=== PATIENT | male | born 1970 | race Asian ===

== ENCOUNTER → 2017-04-28 | Outpatient (CLI) | payer BC ==
[2017-04-28 11:53] LABS: BASOPHILS % 0.6 % (0.0-2.0); EOSINOPHILS % 1.6 % (0.0-5.0); HEMATOCRIT. 49.7 % (42.0-52.0); HEMOGLOBIN. 17.6 g/dL (14.0-18.0); LYMPHOCYTES % 28.6 % (20.0-50.0); MEAN CORPUSCULAR HEMOGLOBIN 30.5 pg (28.0-32.0); MEAN CORPUSCULAR VOLUME 85.9 fL (80.0-94.0); MEAN PLATELET VOLUME 8.7 fl (7.4-10.4); MONOCYTES % 5.1 % (2.0-8.0); NEUTROPHILS % 64.1 % (40.0-76.0); PLATELET 162 x1000/uL (130-400); RED BLOOD CELL COUNT 5.78 mill/uL (4.7-6.1); RED CELL DISTRIBUTION WIDTH 12.4 % (11.6-14.6)
[2017-04-28 11:58] LABS: CLARITY URINE CLEAR (CLEAR); COLOR URINE YELLOW (YELLOW); GLUCOSE URINE 3+ (NEGATIVE); KETONES URINE 1+ (NEGATIVE); LEUKOCYTE ESTERASE URINE NEGATIVE (NEGATIVE); NITRITE URINE NEGATIVE (NEGATIVE); OCCULT BLOOD URINE NEGATIVE (NEGATIVE); PROTEIN URINE TRACE (NEGATIVE); SPECIFIC GRAVITY URINE 1.042 (1.005-1.030); UROBILINOGEN URINE 0.2 E.U./dL (0.2-1.0)
[2017-04-28 12:12] LABS: CARBON DIOXIDE 30 mEq/L (21-32); CHLORIDE 98 mEq/L (98-107); HDL CHOLESTEROL 35 mg/dL (40-59); LDL CHOLESTEROL 131 mg/dL (5-100)
== END | disposition home or self-care (01) ==
LOC: LAB 11:11
PROVIDERS: ATTEND Internal Medicine Nephrology
DX: E11.9 Type 2 diabetes mellitus without complications (principal)
CPT/HCPCS: 36415; 80048; 80061; 81001; 83036; 85025

== ENCOUNTER → 2017-05-20 | Outpatient (CLI) | payer BC | END | disposition home or self-care (01) | LOC: LAB 16:11 | PROVIDERS: ATTEND Internal Medicine Rheumatology | DX: S62.602D Fracture of unspecified phalanx of right middle finger, subsequent encounter for fracture with routine healing (principal); M75.101 Unspecified rotator cuff tear or rupture of right shoulder, not specified as traumatic; M50.30 Other cervical disc degeneration, unspecified cervical region; G56.01 Carpal tunnel syndrome, right upper limb; M05.79 Rheumatoid arthritis with rheumatoid factor of multiple sites without organ or systems involvement; M06.4 Inflammatory polyarthropathy; X58.XXXD Exposure to other specified factors, subsequent encounter | CPT/HCPCS: 73030; 73110; 73130 ==

== ENCOUNTER → 2017-05-24 | Outpatient (CLI) | payer BC ==
[2017-05-24 08:50] LABS: BASOPHILS % 0.8 % (0.0-2.0); HEMOGLOBIN. 16.8 g/dL (14.0-18.0); LYMPHOCYTES % 29.3 % (20.0-50.0); MEAN CORPUSCULAR HEMOGLOBIN 30.4 pg (28.0-32.0); MEAN CORPUSCULAR VOLUME 86.8 fL (80.0-94.0); MEAN PLATELET VOLUME 8.7 fl (7.4-10.4); MONOCYTES % 4.6 % (2.0-8.0); NEUTROPHILS % 63.3 % (40.0-76.0); PLATELET 181 x1000/uL (130-400); RED BLOOD CELL COUNT 5.53 mill/uL (4.7-6.1); RED CELL DISTRIBUTION WIDTH 12.5 % (11.6-14.6)
[2017-05-24 08:51] LABS: CLARITY URINE CLEAR (CLEAR); COLOR URINE YELLOW (YELLOW); GLUCOSE URINE 2+ (NEGATIVE); KETONES URINE NEGATIVE (NEGATIVE); LEUKOCYTE ESTERASE URINE NEGATIVE (NEGATIVE); NITRITE URINE NEGATIVE (NEGATIVE); OCCULT BLOOD URINE NEGATIVE (NEGATIVE); PH URINE 6.5 (4.5-8.0); PROTEIN URINE NEGATIVE (NEGATIVE); SPECIFIC GRAVITY URINE 1.006 (1.005-1.030); UROBILINOGEN URINE 0.2 E.U./dL (0.2-1.0)
[2017-05-24 09:20] LABS: CHLORIDE 102 mEq/L (98-107)
[2017-05-24 09:58] LABS: C REACTIVE PROTEIN QUANT 0.6 mg/L (0.0-3.0); CARBON DIOXIDE 26 mEq/L (21-32); CREATINE KINASE 150 IU/L (39-308); HDL CHOLESTEROL 40 mg/dL (40-59); LDL CHOLESTEROL 82 mg/dL (5-100)
[2017-05-25 15:12] LABS: ANTI-DNA DOUBLE STRANDED QUANT < 1 IU/mL (0-9); ANTI-NUCLEAR ANTIBODIES DIRECT Negative (Negative); RNP ANTIBODY < 0.2 AI (0.0-0.9); SJOGRENS ANTI SS-A < 0.2 AI (0.0-0.9); SJOGRENS ANTI SS-B < 0.2 AI (0.0-0.9); SMITH ANTIBODY < 0.2 AI (0.0-0.9)
[2017-05-26 09:11] LABS: ALDOLASE 4.8 U/L (3.3-10.3); ANGIOTENSION CONVERTING ENZYME 35 U/L (14-82); COMPLEMENT C3 119 mg/dL (82-167); DRVVT LA 33.8 sec (0.0-47.0); LUPUS ANTICOAG INTERPRETATION Comment: (.); PTT-LA 36.4 sec (0.0-51.9)
[2017-05-26 13:09] LABS: G6PD QUANTITATIVE 229 (146-376)
[2017-05-26 15:12] LABS: ANTI-CARDIOLIPIN AB IGA < 9 APL U/mL (0-11); ANTI-CARDIOLIPIN AB IGG < 9 GPL U/mL (0-14); ANTI-CARDIOLIPIN AB IGM < 9 MPL U/mL (0-12)
[2017-05-27 04:18] LABS: CYC CITRULLINATED PEP IgG/IgA 7 units (0-19)
[2017-05-30 13:12] LABS: HLA B27 DISEASE ASSOCIATION Negative (.)
== END | disposition home or self-care (01) ==
LOC: MRI 08:00
PROVIDERS: ATTEND Internal Medicine Rheumatology
DX: M48.02 Spinal stenosis, cervical region (principal); M50.80 Other cervical disc disorders, unspecified cervical region; M50.30 Other cervical disc degeneration, unspecified cervical region; M75.101 Unspecified rotator cuff tear or rupture of right shoulder, not specified as traumatic; G56.01 Carpal tunnel syndrome, right upper limb; M05.79 Rheumatoid arthritis with rheumatoid factor of multiple sites without organ or systems involvement; M06.4 Inflammatory polyarthropathy
CPT/HCPCS: 36415; 72040; 72141; 73221; 80053; 80061; 81001; 82085; 82164; 82550; 82955; 83036; 84439; 84550; 85025; 85041; 85613; 85651; 85732; 86038; 86140; 86147; 86160; 86200; 86225; 86235; 86430; 86592; 86780

== ENCOUNTER → 2017-07-27 | Outpatient (CLI) | payer BC ==
[2017-07-27 09:49] LABS: T4 FREE 0.96 ng/dL (0.76-1.46)
[2017-07-28 13:12] LABS: *CREATININE RANDOM URINE 29.8 mg/dL (Not Estab.)
== END | disposition home or self-care (01) ==
LOC: LAB 08:03
PROVIDERS: ATTEND Internal Medicine Endocrinology, Diabetes & Metabolism
DX: E11.69 Type 2 diabetes mellitus with other specified complication (principal); E11.29 Type 2 diabetes mellitus with other diabetic kidney complication; E05.90 Thyrotoxicosis, unspecified without thyrotoxic crisis or storm
CPT/HCPCS: 36415; 82043; 82570; 84439; 84443; 84681

== ENCOUNTER → 2017-09-28 | Outpatient (CLI) | payer BC | END | disposition home or self-care (01) | LOC: LAB 07:59 | PROVIDERS: ATTEND Internal Medicine Endocrinology, Diabetes & Metabolism | DX: E11.311 Type 2 diabetes mellitus with unspecified diabetic retinopathy with macular edema (principal) | CPT/HCPCS: 83036 ==

== ENCOUNTER → 2018-04-16 | Outpatient (CLI) | payer BC ==
[2018-04-16 08:19] LABS: CLARITY URINE CLEAR (CLEAR); COLOR URINE YELLOW (YELLOW); KETONES URINE NEGATIVE (NEGATIVE); LEUKOCYTE ESTERASE URINE NEGATIVE (NEGATIVE); NITRITE URINE NEGATIVE (NEGATIVE); OCCULT BLOOD URINE NEGATIVE (NEGATIVE); PH URINE 6.5 (4.5-8.0); PROTEIN URINE NEGATIVE (NEGATIVE); SPECIFIC GRAVITY URINE 1.012 (1.005-1.030); UROBILINOGEN URINE 0.2 E.U./dL (0.2-1.0)
[2018-04-16 08:22] LABS: BASOPHILS % 0.8 % (0.0-2.0); EOSINOPHILS % 6.7 % (0.0-5.0); HEMATOCRIT. 47.9 % (42.0-52.0); HEMOGLOBIN. 16.6 g/dL (14.0-18.0); LYMPHOCYTES % 26.6 % (20.0-50.0); MEAN CORPUSCULAR HEMOGLOBIN 29.9 pg (28.0-32.0); MEAN CORPUSCULAR VOLUME 86.6 fL (80.0-94.0); MEAN PLATELET VOLUME 8.3 fl (7.4-10.4); NEUTROPHILS % 59.9 % (40.0-76.0); PLATELET 187 x1000/uL (130-400); RED BLOOD CELL COUNT 5.53 mill/uL (4.7-6.1)
[2018-04-16 08:41] LABS: CHLORIDE 99 mEq/L (98-107)
[2018-04-16 08:56] LABS: LDL CHOLESTEROL 148 mg/dL (5-100)
[2018-04-16 08:57] LABS: HDL CHOLESTEROL 35 mg/dL (40-59)
[2018-04-17 09:06] LABS: *CREATININE RANDOM URINE 48.7 mg/dL (Not Estab.); MICROALBUMIN RANDOM URINE 12.6 ug/mL (Not Estab.)
== END | disposition home or self-care (01) ==
LOC: LAB 07:46
PROVIDERS: ATTEND Internal Medicine Nephrology
DX: E11.9 Type 2 diabetes mellitus without complications (principal); R80.9 Proteinuria, unspecified
CPT/HCPCS: 36415; 80053; 80061; 81003; 82043; 82570; 83036; 84443; 85025

== ENCOUNTER → 2018-06-16 | Outpatient (CLI) | payer BC | END | disposition home or self-care (01) | LOC: MRI 08:09 | PROVIDERS: ATTEND Neurological Surgery | DX: M48.02 Spinal stenosis, cervical region (principal); M50.221 Other cervical disc displacement at C4-C5 level | CPT/HCPCS: 72141 ==

== ENCOUNTER → 2021-10-05 | Outpatient (CLI) | payer BC ==
[~2021-10-05] MED LIST: ASPI-1497 PO; CHOL400T31 PO; GABA-532 PO; GLIP5TAB12 MT; INSU300I SQ; LINA5TAB PO; LOSA25TA26 PO; METF-416 PO; SIMV-43 PO
[2021-10-05 09:27] LABS: BASOPHILS % 0.6 % (0.0-2.0); EOSINOPHILS % 1.3 % (0.0-5.0); HEMOGLOBIN. 16.2 g/dL (14.0-18.0); LYMPHOCYTES % 24.2 % (20.0-50.0); MEAN CORPUSCULAR HEMOGLOBIN 29.8 pg (28.0-32.0); MEAN CORPUSCULAR VOLUME 84.6 fL (80.0-94.0); MEAN PLATELET VOLUME 8.8 fl (7.4-10.4); MONOCYTES % 6.1 % (2.0-8.0); NEUTROPHILS % 67.8 % (40.0-76.0); PLATELET 165 x1000/uL (130-400); RED BLOOD CELL COUNT 5.43 mill/uL (4.7-6.1); RED CELL DISTRIBUTION WIDTH 12.8 % (11.6-14.6)
[2021-10-05 09:56] LABS: CHLORIDE 103 mEq/L (98-107)
[2021-10-05 10:01] LABS: CLARITY URINE CLEAR (CLEAR); COLOR URINE YELLOW (YELLOW); KETONES URINE NEGATIVE (NEGATIVE); LEUKOCYTE ESTERASE URINE NEGATIVE (NEGATIVE); NITRITE URINE NEGATIVE (NEGATIVE); OCCULT BLOOD URINE NEGATIVE (NEGATIVE); PROTEIN URINE NEGATIVE (NEGATIVE); SPECIFIC GRAVITY URINE 1.014 (1.005-1.030); UROBILINOGEN URINE 0.2 E.U./dL (0.2-1.0)
[2021-10-05 10:04] LABS: LDL CHOLESTEROL 105 mg/dL (5-100)
[2021-10-05 10:06] LABS: HDL CHOLESTEROL 42 mg/dL (40-59); T4 FREE 1.06 ng/dL (0.76-1.46)
== END | disposition home or self-care (01) ==
LOC: LAB 08:46
DX: E11.65 Type 2 diabetes mellitus with hyperglycemia (principal); E11.43 Type 2 diabetes mellitus with diabetic autonomic (poly)neuropathy; E66.3 Overweight; E78.3 Hyperchylomicronemia
CPT/HCPCS: 36415; 80053; 80061; 81003; 82306; 83036; 84439; 84443; 84681; 85025

== ENCOUNTER → 2022-08-24 | Outpatient (CLI) | payer BC ==
[2022-08-24 11:04] LABS: BASOPHILS % 0.5 % (0.0-2.0); EOSINOPHILS % 1.7 % (0.0-5.0); HEMATOCRIT. 49.6 % (42.0-52.0); LYMPHOCYTES % 29.9 % (20.0-50.0); MEAN CORPUSCULAR HEMOGLOBIN 29.7 pg (28.0-32.0); MEAN CORPUSCULAR VOLUME 86.6 fL (80.0-94.0); MEAN PLATELET VOLUME 8.1 fl (7.4-10.4); NEUTROPHILS % 61.9 % (40.0-76.0); PLATELET 183 x1000/uL (130-400); RED BLOOD CELL COUNT 5.73 mill/uL (4.7-6.1); RED CELL DISTRIBUTION WIDTH 13.3 % (11.6-14.6)
[2022-08-24 11:07] LABS: CLARITY URINE CLEAR (CLEAR); COLOR URINE YELLOW (YELLOW); KETONES URINE TRACE (NEGATIVE); LEUKOCYTE ESTERASE URINE NEGATIVE (NEGATIVE); NITRITE URINE NEGATIVE (NEGATIVE); OCCULT BLOOD URINE NEGATIVE (NEGATIVE); PROTEIN URINE TRACE (NEGATIVE); SPECIFIC GRAVITY URINE 1.028 (1.005-1.030); UROBILINOGEN URINE 0.2 E.U./dL (0.2-1.0)
[2022-08-24 11:53] LABS: CHLORIDE 101 mEq/L (98-107)
[2022-08-24 13:29] LABS: HDL CHOLESTEROL 40 mg/dL (40-59)
[2022-08-24 15:03] LABS: LDL CHOLESTEROL 123 mg/dL (5-100)
[2022-08-29 04:07] LABS: 25-HYDROXY VITAMIN D3 25 ng/mL (.)
== END | disposition home or self-care (01) ==
LOC: LAB 10:33
PROVIDERS: ATTEND Internal Medicine Nephrology
DX: E11.9 Type 2 diabetes mellitus without complications (principal)
CPT/HCPCS: 36415; 80048; 80061; 81003; 82306; 83036; 85025

== ENCOUNTER → 2023-05-16 | Outpatient (CLI) | payer BC ==
[2023-05-16 08:19] LABS: CLARITY URINE CLEAR (CLEAR); COLOR URINE YELLOW (YELLOW); GLUCOSE URINE NEGATIVE (NEGATIVE); KETONES URINE NEGATIVE (NEGATIVE); LEUKOCYTE ESTERASE URINE NEGATIVE (NEGATIVE); NITRITE URINE NEGATIVE (NEGATIVE); OCCULT BLOOD URINE NEGATIVE (NEGATIVE); PROTEIN URINE TRACE (NEGATIVE); SPECIFIC GRAVITY URINE 1.014 (1.005-1.030)
[2023-05-16 08:21] LABS: BACTERIA URINE NONE SEEN; RBC URINE NONE SEEN /hpf (0-2); SQUAMOUS EPITHELIAL CELL URINE NONE SEEN /lpf (RARE/1+); WBC URINE NONE SEEN /hpf (0-2); YEAST URINE NONE SEEN
[2023-05-16 08:52] LABS: CHLORIDE 102 mEq/L (98-107); INDEX HEMOLYSI 1 (1-3); INDEX ICTERIC 1 (1-4); INDEX LIPEMIC 1 (1-3); POTASSIUM 4.3 mEq/L (3.5-5.1); SODIUM 136 mEq/L (136-145)
[2023-05-16 09:08] LABS: ALANINE AMINOTRANSFERASE 39 IU/L (13-61); ALBUMIN 4.3 g/dL (3.4-5.0); ASPARTATE AMINOTRANSFERASE 20 IU/L (15-37); CARBON DIOXIDE 29 mEq/L (21-32); CREATININE 0.9 mg/dL (0.6-1.3); GLUCOSE 214 mg/dL (70-105); PROTEIN TOTAL 7.9 g/dL (6.0-8.3); T4 FREE 1.02 ng/dL (0.76-1.46); UREA NITROGEN BLOOD 22 mg/dL (7-21)
== END | disposition home or self-care (01) ==
LOC: LAB 07:59
PROVIDERS: ATTEND Internal Medicine Endocrinology, Diabetes & Metabolism
DX: I10 Essential (primary) hypertension (principal); E11.43 Type 2 diabetes mellitus with diabetic autonomic (poly)neuropathy; E11.69 Type 2 diabetes mellitus with other specified complication
CPT/HCPCS: 36415; 80053; 81003; 83036; 84439; 84443; 84681

== ENCOUNTER → 2023-08-12 | Outpatient (CLI) | payer BC ==
[~2023-08-12] MED LIST changes: -GLIP5TAB12 MT; +GLIP5TAB22 MT
[2023-08-12 08:18] LABS: BASOPHILS % 0.7 % (0.0-2.0); EOSINOPHILS % 1.9 % (0.0-5.0); HEMATOCRIT. 52.4 % (42.0-52.0); HEMOGLOBIN. 17.7 g/dL (14.0-18.0); LYMPHOCYTES % 29.7 % (20.0-50.0); MEAN CORPUSCULAR HEMOGLOBIN 29.8 pg (28.0-32.0); MEAN CORPUSCULAR HGB CONC 33.9 g/dL (31.0-37.0); MEAN CORPUSCULAR VOLUME 87.8 fL (80.0-94.0); MONOCYTES % 6.5 % (2.0-8.0); NEUTROPHILS % 61.2 % (40.0-76.0); PLATELET 164 x1000/uL (130-400); RED BLOOD CELL COUNT 5.96 mill/uL (4.7-6.1); RED CELL DISTRIBUTION WIDTH 12.9 % (11.6-14.6); WHITE BLOOD COUNT 5.3 x1000/uL (4.5-11.0)
[2023-08-12 08:25] LABS: CLARITY URINE CLEAR (CLEAR); COLOR URINE YELLOW (YELLOW); GLUCOSE URINE 3+ (NEGATIVE); KETONES URINE NEGATIVE (NEGATIVE); LEUKOCYTE ESTERASE URINE NEGATIVE (NEGATIVE); NITRITE URINE NEGATIVE (NEGATIVE); OCCULT BLOOD URINE NEGATIVE (NEGATIVE); PH URINE 5.5 (4.5-8.0); PROTEIN URINE NEGATIVE (NEGATIVE); SPECIFIC GRAVITY URINE 1.033 (1.005-1.030); UROBILINOGEN URINE 0.2 E.U./dL (0.2-1.0)
[2023-08-12 08:38] LABS: ALANINE AMINOTRANSFERASE 26 IU/L (10-49); ALBUMIN 4.4 g/dL (3.2-4.8); ASPARTATE AMINOTRANSFERASE 25 IU/L (<34); BILIRUBIN TOTAL 0.5 mg/dL (0.1-1.0); CARBON DIOXIDE 28 mEq/L (21-32); CHLORIDE 103 mEq/L (98-107); CHOLESTEROL 209 mg/dL (<200); CREATININE 1.1 mg/dL (0.6-1.3); GLUCOSE 118 mg/dL (70-105); HDL CHOLESTEROL 41 mg/dL (>55); LDL CHOLESTEROL 114 mg/dL (5-100); PHOSPHORUS 4.2 mg/dL (2.5-4.9); POTASSIUM 4.1 mEq/L (3.5-5.1); PROTEIN TOTAL 7.5 g/dL (6.0-8.3); SODIUM 138 mEq/L (136-145); T4 FREE 1.29 ng/dL (0.89-1.76); THYROID STIMULATING HORMONE 2.84 uIU/mL (0.55-4.78); TRIGLYCERIDE 301 mg/dL (0-150); UREA NITROGEN BLOOD 20 mg/dL (9-23)
[2023-08-12 09:04] LABS: BACTERIA URINE RARE; RBC URINE NONE SEEN /hpf (0-2); SQUAMOUS EPITHELIAL CELL URINE NONE SEEN /lpf (RARE/1+); WBC URINE 0-2 /hpf (0-2); YEAST URINE NONE SEEN
[2023-08-13 09:06] LABS: VITAMIN D 25-OH 26.7 ng/mL (30.0-100.0)
== END | disposition home or self-care (01) ==
LOC: LAB 07:43
PROVIDERS: ATTEND Internal Medicine Nephrology
DX: Z12.11 Encounter for screening for malignant neoplasm of colon (principal); E11.319 Type 2 diabetes mellitus with unspecified diabetic retinopathy without macular edema; E55.9 Vitamin D deficiency, unspecified; I10 Essential (primary) hypertension; E11.65 Type 2 diabetes mellitus with hyperglycemia; E11.40 Type 2 diabetes mellitus with diabetic neuropathy, unspecified; E78.5 Hyperlipidemia, unspecified; R07.9 Chest pain, unspecified; N40.0 Benign prostatic hyperplasia without lower urinary tract symptoms
CPT/HCPCS: 36415; 80053; 80061; 80069; 81003; 82306; 82570; 83036; 83970; 84156; 84439; 84443; 85025

== ENCOUNTER → 2024-06-06 | Outpatient (CLI) | payer BC ==
[2024-06-06 10:03] LABS: HEMATOCRIT 51.6 % (42.0-52.0)
[2024-06-06 10:07] LABS: CLARITY URINE CLEAR (CLEAR); COLOR URINE YELLOW (YELLOW); GLUCOSE URINE 3+ (NEGATIVE); KETONES URINE NEGATIVE (NEGATIVE); LEUKOCYTE ESTERASE URINE NEGATIVE (NEGATIVE); NITRITE URINE NEGATIVE (NEGATIVE); OCCULT BLOOD URINE NEGATIVE (NEGATIVE); PROTEIN URINE NEGATIVE (NEGATIVE); SPECIFIC GRAVITY URINE 1.026 (1.005-1.030); UROBILINOGEN URINE 0.2 E.U./dL (0.2-1.0)
[2024-06-06 10:23] LABS: CARBON DIOXIDE 26 mEq/L (21-32); CHLORIDE 102 mEq/L (98-107); POTASSIUM 3.8 mEq/L (3.5-5.1); SODIUM 137 mEq/L (136-145)
[2024-06-06 10:24] LABS: CALCIUM 9.9 mg/dL (8.7-10.4)
[2024-06-06 10:26] LABS: T4 FREE 1.38 ng/dL (0.89-1.76)
[2024-06-06 10:28] LABS: CREATININE 1.1 mg/dL (0.6-1.3); THYROID STIMULATING HORMONE 1.28 uIU/mL (0.55-4.78)
[2024-06-06 10:29] LABS: GLUCOSE 217 mg/dL (70-105); TRIGLYCERIDE 390 mg/dL (0-150); UREA NITROGEN BLOOD 12 mg/dL (9-23)
[2024-06-06 10:30] LABS: ALANINE AMINOTRANSFERASE 35 IU/L (10-49); ALBUMIN 4.6 g/dL (3.2-4.8); ASPARTATE AMINOTRANSFERASE 22 IU/L (<34); C REACTIVE PROTEIN HIGH SENS 0.86 mg/l (<1.00); LDL CHOLESTEROL 95 mg/dL (5-100)
[2024-06-06 10:31] LABS: BILIRUBIN DIRECT 0.2 mg/dL (<=3.0); CHOLESTEROL 183 mg/dL (<200); HDL CHOLESTEROL 38 mg/dL (>55); PHOSPHORUS 3.7 mg/dL (2.5-4.9); PROTEIN TOTAL 7.6 g/dL (6.0-8.3)
[2024-06-06 10:40] LABS: BACTERIA URINE NONE SEEN; RBC URINE NONE SEEN /hpf (0-2); WBC URINE NONE SEEN /hpf (0-2)
[2024-06-07 09:07] LABS: *T3 UPTAKE 28 % (24-39); PROSTATE SPECIFIC AG TOTAL 0.5 ng/mL (0.0-4.0); VITAMIN D 25-OH 30.3 ng/mL (30.0-100.0)
[2024-06-08 04:08] LABS: THYROXINE BINDING GLOBULIN 17 ug/mL (13-39)
== END | disposition home or self-care (01) ==
LOC: LAB 09:17
PROVIDERS: ATTEND Internal Medicine Nephrology
DX: E11.22 Type 2 diabetes mellitus with diabetic chronic kidney disease (principal); N18.2 Chronic kidney disease, stage 2 (mild); D64.9 Anemia, unspecified; E03.9 Hypothyroidism, unspecified; E78.5 Hyperlipidemia, unspecified; E55.9 Vitamin D deficiency, unspecified; N39.0 Urinary tract infection, site not specified; E87.5 Hyperkalemia; N17.9 Acute kidney failure, unspecified; R80.9 Proteinuria, unspecified; N40.0 Benign prostatic hyperplasia without lower urinary tract symptoms; K21.9 Gastro-esophageal reflux disease without esophagitis; E86.0 Dehydration
CPT/HCPCS: 36415; 80053; 80061; 80069; 81003; 82248; 82306; 82570; 83036; 83970; 84100; 84153; 84156; 84439; 84442; 84443; 84479; 85014; 85018; 86141

== ENCOUNTER 2024-08-27 19:17 | Inpatient (IN) | payer BC ==
[~2024-08-27] VITALS: Ht 170.2 cm; Wt 84.4 kg
[2024-08-27 06:58] LABS: BASOPHILS % 0.6 % (0.0-2.0); EOSINOPHILS % 1.7 % (0.0-5.0); HEMATOCRIT. 50.2 % (42.0-52.0); LYMPHOCYTES % 30.7 % (20.0-50.0); MEAN CORPUSCULAR HEMOGLOBIN 30.2 pg (28.0-32.0); MEAN CORPUSCULAR HGB CONC 33.9 g/dL (31.0-37.0); MEAN PLATELET VOLUME 8.3 fl (7.4-10.4); MONOCYTES % 6.2 % (2.0-8.0); NEUTROPHILS % 60.8 % (40.0-76.0); PLATELET 160 x1000/uL (130-400); RED BLOOD CELL COUNT 5.64 mill/uL (4.7-6.1); RED CELL DISTRIBUTION WIDTH 13.2 % (11.6-14.6); WHITE BLOOD COUNT 4.7 x1000/uL (4.5-11.0)
[2024-08-27 07:16] LABS: CHLORIDE 107 mEq/L (98-107); SODIUM 141 mEq/L (136-145)
[2024-08-27 07:17] LABS: CALCIUM 9.4 mg/dL (8.7-10.4); CARBON DIOXIDE 27 mEq/L (21-32)
[2024-08-27 07:19] LABS: PROTHROMBIN TIME 10.8 sec (9.6-11.0)
[2024-08-27 07:22] LABS: CREATININE 1.1 mg/dL (0.6-1.3); GLUCOSE 123 mg/dL (70-105); UREA NITROGEN BLOOD 19 mg/dL (9-23)
[2024-08-27] MEDS: HYDRALAZINE 20MG/ML VIAL IV PRN (11:59)
[2024-08-27] MEDS: ACETAMINOPHEN 325MG TABLET PO PRN (17:36)
[2024-08-27 18:08] VITALS: BP 165/90; PULSE 87; RESP 15; TEMP 36.7; O2SAT 97
[2024-08-27 18:18] VITALS: BP 165/90; PULSE 87; RESP 15; TEMP 36.8
[~2024-08-27 19:17] MED LIST changes: +AMLO5TAB88 PO; +ATROPINE SULFATE 1MG/10ML SYR IV PRN; +DAPA5TAB PO; +DIPHENHYDRAMINE 50MG/ML VIAL ONE; +FENTANYL CITRATE/PF 50MCG/ML 2ML VIAL ONE; +GABA-1180 PO; -GABA-532 PO; -GLIP5TAB22 MT; +GLIP5TAB22 PO; +HEPARIN 1000 UNITS/ML 10ML ONE; +IODIXANOL 320MG/ML 100 ML BOTTLE IV ONE; +LIDOCAINE HCL 1% 10 MG/ML 10ML VIAL ONE; +LOSA100T33 PO; +MIDAZOLAM HCL 2 MG/2 ML VIAL ONE; +NITR0.4T49 SL; +SIMV-46 PO; +SODIUM CHLORIDE 0.45% 500 ML IV NR; +TIRZ2.5P SQ; +VERAPAMIL HCL 2.5 MG/1 ML 2ML VIAL IV ONE
[2024-08-27 19:38] LABS: HEPATITIS B SURFACE ANTIGEN NEGATIVE (Negative)
[2024-08-27 19:59] LABS: HEPATITIS C AB NON REACTIVE (Neg) (Negative)
[2024-08-27 20:00] VITALS: BP 143/89; PULSE 82; RESP 17; O2SAT 97
[2024-08-28] VITALS (9 sets, daily range): BP systolic 125–159; BP diastolic 75–96; PULSE 75–84; RESP 0–17; TEMP 36.4–37.2; O2SAT 96–98
[2024-08-28 07:04] LABS: CARBON DIOXIDE 28 mEq/L (21-32); CHLORIDE 106 mEq/L (98-107); POTASSIUM 4.3 mEq/L (3.5-5.1); SODIUM 139 mEq/L (136-145)
[2024-08-28 07:05] LABS: CALCIUM 9.4 mg/dL (8.7-10.4)
[2024-08-28 07:10] LABS: CREATININE 1.2 mg/dL (0.6-1.3); GLUCOSE 141 mg/dL (70-105); UREA NITROGEN BLOOD 19 mg/dL (9-23)
[2024-08-28 07:12] LABS: PHOSPHORUS 2.9 mg/dL (2.5-4.9)
[2024-08-28 07:16] LABS: BASOPHILS % 0.3 % (0.0-2.0); EOSINOPHILS % 0.9 % (0.0-5.0); HEMATOCRIT. 49.8 % (42.0-52.0); HEMOGLOBIN. 16.6 g/dL (14.0-18.0); LYMPHOCYTES % 26.4 % (20.0-50.0); MEAN CORPUSCULAR HEMOGLOBIN 29.8 pg (28.0-32.0); MEAN CORPUSCULAR HGB CONC 33.4 g/dL (31.0-37.0); MEAN CORPUSCULAR VOLUME 89.3 fL (80.0-94.0); MEAN PLATELET VOLUME 8.4 fl (7.4-10.4); MONOCYTES % 6.7 % (2.0-8.0); NEUTROPHILS % 65.7 % (40.0-76.0); PLATELET 163 x1000/uL (130-400); RED BLOOD CELL COUNT 5.58 mill/uL (4.7-6.1); WHITE BLOOD COUNT 6.5 x1000/uL (4.5-11.0)
[2024-08-28 10:07] LABS: CLARITY URINE CLEAR (CLEAR); COLOR URINE YELLOW (YELLOW); GLUCOSE URINE 3+ (NEGATIVE); PROTEIN URINE NEGATIVE (NEGATIVE)
[2024-08-28 10:09] LABS: KETONES URINE TRACE (NEGATIVE); LEUKOCYTE ESTERASE URINE NEGATIVE (NEGATIVE); NITRITE URINE NEGATIVE (NEGATIVE); OCCULT BLOOD URINE NEGATIVE (NEGATIVE); SPECIFIC GRAVITY URINE >=1.030 (1.005-1.030); UROBILINOGEN URINE 0.2 E.U./dL (0.2-1.0)
[2024-08-28 10:38] LABS: BACTERIA URINE RARE; RBC URINE NONE SEEN /hpf (0-2); SQUAMOUS EPITHELIAL CELL URINE NONE SEEN /lpf (RARE/1+); WBC URINE 0-2 /hpf (0-2); YEAST URINE NONE SEEN
[2024-08-28] MEDS: ASPIRIN 81MG TABLET PO SCH (11:27)
[2024-08-28] MEDS: CARVEDILOL 6.25 MG TABLET PO SCH (11:27)
[2024-08-28] MEDS: AMLODIPINE 10MG TABLET PO SCH (11:27)
[2024-08-28] MEDS: BLOOD SUGAR DIAGNOSTIC STRIP TEST SCH (17:15)
[2024-08-28] MEDS ORDERED: DEXTROSE 50% WATER 50ML SYRINGE IV PRN (17:15)
[2024-08-28] MEDS: INSULIN LISPRO 100 UNITS/ML SUBCUT SCH (17:45)
[2024-08-28] MEDS: ATORVASTATIN CALCIUM 40MG TABLET PO SCH (21:43)
[2024-08-28] MEDS: CHLORHEXIDINE GLUCONATE 4% EXTERNAL USE TOP SCH (21:43)
[2024-08-29] VITALS (37 sets, daily range): BP systolic 94–146; BP diastolic 59–99; PULSE 72–110; RESP 13–22; TEMP 36.6–37.4; O2SAT 95–100
[2024-08-29] MEDS ORDERED: DEL NIDO CARDIOPLEGIA 1,000 ML (PREMIX) IV ONE (05:00)
[2024-08-29] MEDS ORDERED: DOBUTAMINE 250 MG/250 ML PREMIX IV PRN (05:00)
[2024-08-29] MEDS ORDERED: NOREPINEPHRINE 8MG/250ML PMX 250 ML IV PRN (05:00)
[2024-08-29] MEDS ORDERED: INSULIN REGULAR 100 U/100 ML PREMIX IV PRN (05:00)
[2024-08-29] MEDS ORDERED: PAPAVERINE HCL 180MG in SODIUM CHLORIDE 0.9% 24ML IV NR (05:00)
[2024-08-29] MEDS ORDERED: AMINOCAPROIC ACID 5,000 MG in SODIUM CHLORIDE 0.9% 250 ML IV PRN (05:00)
[2024-08-29] MEDS ORDERED: EPINEPHRINE 5 MG in DEXT 5% WATER 250 ML IV PRN (05:00)
[2024-08-29] MEDS ORDERED: CEFAZOLIN 2000MG PREMIX 50 ML IV SCH (05:00)
[2024-08-29] MEDS ORDERED: NICARDIPINE 40MG/200ML PREMIX 200 ML IV PRN (05:00)
[2024-08-29] MEDS ORDERED: VASOPRESSIN 20 UNIT/ML 1ML ONE (06:27)
[2024-08-29] MEDS ORDERED: SKIN ADHESIVE 0.7 GM EA TOP ONE (06:27)
[2024-08-29] MEDS ORDERED: THROMBIN (BOVINE) 5000 UNITS/VIAL TOP ONE ×2 (06:27→15:16)
[2024-08-29] MEDS ORDERED: POLYMYXIN B SULFATE 500000 UNITS/VIAL ONE (06:27)
[2024-08-29] MEDS ORDERED: DESMOPRESSIN ACETATE 4MCG/ML AMP ONE (06:28)
[2024-08-29] MEDS ORDERED: SEVOFLURANE 250 ML LIQUID INH ONE (06:32)
[2024-08-29] MEDS ORDERED: NITROGLYCERIN 50MG PREMIX 250 ML IV ONE (06:32)
[2024-08-29] MEDS ORDERED: HEPARIN 1000 UNITS/ML 10ML ONE ×3 (06:33→10:19)
[2024-08-29] MEDS ORDERED: DOPAMINE 400MG/250ML PREMIX 250 ML IV ONE (06:34)
[2024-08-29] MEDS: CHLORHEXIDINE GLUCONATE 4% EXTERNAL USE TOP SCH (06:43)
[2024-08-29] MEDS ORDERED: ROCURONIUM BROMIDE 10MG/ML VIAL 5ML IV ONE (07:04)
[2024-08-29] MEDS ORDERED: SUCCINYLCHOLINE CHLORIDE 200MG/10ML IV ONE (07:04)
[2024-08-29] MEDS ORDERED: PROPOFOL 200MG/20ML VIAL IV ONE (07:04)
[2024-08-29] MEDS ORDERED: FENTANYL CITRATE/PF 50MCG/ML 5ML VIAL ONE (07:05)
[2024-08-29] MEDS ORDERED: MIDAZOLAM HCL 5 MG/5 ML VIAL ONE (07:05)
[2024-08-29] MEDS ORDERED: PHENYLEPHRINE HCL 10MG/ML 1ML IV ONE (07:11)
[2024-08-29] MEDS ORDERED: VANCOMYCIN 1GM/200ML PMX (BAXTER) IV SCH (07:30)
[2024-08-29] MEDS ORDERED: DEXTROSE 50% WATER 50ML SYRINGE IV PRN ×2 (07:45)
[2024-08-29] MEDS ORDERED: KCL 10MEQ/50ML PREMIX 200 ML IV PRN (07:45)
[2024-08-29] MEDS ORDERED: KCL 10MEQ/50ML PREMIX 150 ML IV PRN (08:00)
[2024-08-29] MEDS ORDERED: ESMOLOL HCL 10MG/ML 10ML VIAL IV ONE (09:25)
[2024-08-29] MEDS ORDERED: ALBUMIN HUMAN 25GM/100ML (25%) IV ONE (10:00)
[2024-08-29] MEDS ORDERED: DEXAMETHASONE 4MG/ML 1ML VIAL ONE (10:02)
[2024-08-29] MEDS ORDERED: BUPIVACAINE HCL/PF 0.5% (5MG/ML) 10ML ONE (10:24)
[2024-08-29] MEDS ORDERED: SODIUM BICARBONATE 8.4% 50MEQ/50ML SYR IV ONE (11:01)
[2024-08-29] MEDS ORDERED: BACITRACIN 14GM TUBE TOP ONE (11:02)
[2024-08-29] MEDS ORDERED: FENTANYL CITRATE/PF 50MCG/ML 2ML VIAL ONE ×2 (13:41→15:42)
[2024-08-29] MEDS ORDERED: MIDAZOLAM HCL 2 MG/2 ML VIAL ONE (13:43)
[2024-08-29] MEDS ORDERED: PROTAMINE SULFATE 10MG/ML VIAL 25ML IV ONE ×2 (13:52→14:35)
[2024-08-29] MEDS: BLOOD SUGAR DIAGNOSTIC STRIP TEST SCH (14:00)
[2024-08-29] MEDS ORDERED: KCL 20MEQ/100ML PREMIX 200 ML IV ONE (14:34)
[2024-08-29 15:56] LABS: BASOPHILS % 0.2 % (0.0-2.0); EOSINOPHILS % 0.1 % (0.0-5.0); HEMATOCRIT. 33.2 % (42.0-52.0); HEMOGLOBIN. 11.5 g/dL (14.0-18.0); LYMPHOCYTES % 9.1 % (20.0-50.0); MEAN CORPUSCULAR HEMOGLOBIN 30.4 pg (28.0-32.0); MEAN CORPUSCULAR HGB CONC 34.7 g/dL (31.0-37.0); MEAN CORPUSCULAR VOLUME 87.4 fL (80.0-94.0); MEAN PLATELET VOLUME 8.1 fl (7.4-10.4); MONOCYTES % 4.6 % (2.0-8.0); PLATELET 112 x1000/uL (130-400); RED CELL DISTRIBUTION WIDTH 12.9 % (11.6-14.6); WHITE BLOOD COUNT 15.1 x1000/uL (4.5-11.0)
[2024-08-29 16:00] LABS: CHLORIDE 112 mEq/L (98-107); POTASSIUM 3.7 mEq/L (3.5-5.1)
[2024-08-29 16:01] LABS: CALCIUM 9.3 mg/dL (8.7-10.4); CARBON DIOXIDE 29 mEq/L (21-32)
[2024-08-29 16:06] LABS: CREATININE 1.2 mg/dL (0.6-1.3); GLUCOSE 175 mg/dL (70-105); INR 1.3; PARTIAL THROMBOPLASTIN TIME 25.7 sec (23.4-31.0); PROTHROMBIN TIME 13.9 sec (9.6-11.0); UREA NITROGEN BLOOD 18 mg/dL (9-23)
[2024-08-29 16:08] LABS: ALANINE AMINOTRANSFERASE 16 IU/L (10-49); ALBUMIN 3.6 g/dL (3.2-4.8); ASPARTATE AMINOTRANSFERASE 44 IU/L (<34)
[2024-08-29 16:09] LABS: BILIRUBIN TOTAL 1.5 mg/dL (0.1-1.0)
[2024-08-29 16:12] LABS: PROTEIN TOTAL 5.3 g/dL (6.0-8.3); SODIUM 147 mEq/L (136-145)
[2024-08-29 16:15] LABS: PHOSPHORUS 0.8 mg/dL (2.5-4.9)
[2024-08-29] MEDS ORDERED: ALBUMIN HUMAN 12.5G/250ML (5%) IV PRN (16:30)
[2024-08-29] MEDS ORDERED: ONDANSETRON HCL 4MG/2ML INJ IV PRN (16:30)
[2024-08-29] MEDS ORDERED: CALCIUM CHLORIDE 3,000 MG in DEXT 5% WATER 250 ML IV PRN (16:30)
[2024-08-29] MEDS ORDERED: CALCIUM CHLORIDE 5,000 MG in DEXT 5% WATER 500 ML IV PRN (16:30)
[2024-08-29] MEDS ORDERED: ACETAMINOPHEN 325MG TABLET PO PRN (16:30)
[2024-08-29] MEDS ORDERED: SODIUM CHLORIDE 0.9% 500 ML IV PRN (17:00)
[2024-08-29] MEDS: INSULIN REGULAR 100U/100ML PMX 100 ML IV PRN (17:08)
[2024-08-29] MEDS: NOREPINEPHRINE 8MG/250ML PMX 250 ML IV PRN (17:20)
[2024-08-29] MEDS: PROPOFOL 10MG/ML 100ML 100 ML IV PRN (17:21)
[2024-08-29] MEDS: DOPAMINE 400MG/250ML PREMIX 250 ML IV PRN (17:21)
[2024-08-29 17:22] LABS: BG BASE EXCESS 0.5 mmol/L (-2.0-3.0); BG CARBOXYHEMOGLOBIN 0.1 % (0.5-1.5); BG DEOXYHEMOGLOBIN 2.3 % (0.0-5.0); BG FRACTION INSPIRED OXYGEN 50; BG HCO3 ACT 25.7 mmol/L (21.0-28.0); BG METHEMOGLOBIN 0.3 % (0.5-1.5); BG OXYGEN SATURATION 97.7 % (94.0-98.0); BG OXYHEMOGLOBIN 97.3 % (94.0-98.0); BG PCO2 43.8 mmHg (35.0-48.0); BG PH 7.386 (7.350-7.450); BG PO2 112.9 mmHg (83.0-108.0); BG SAMPLE SITE ALINE; BG TOTAL HEMOGLOBIN 11.6 g/dL (13.5-17.5); BG VENT MODE VENT - CPAP
[2024-08-29 17:27] LABS: HEMATOCRIT. 32.6 % (42.0-52.0); HEMOGLOBIN. 11.3 g/dL (14.0-18.0); MEAN CORPUSCULAR HEMOGLOBIN 30.4 pg (28.0-32.0); MEAN CORPUSCULAR HGB CONC 34.5 g/dL (31.0-37.0); MEAN PLATELET VOLUME 7.9 fl (7.4-10.4); PLATELET 106 x1000/uL (130-400); WHITE BLOOD COUNT 12.9 x1000/uL (4.5-11.0)
[2024-08-29 17:32] LABS: DIFFERENTIAL COMMENT 1
[2024-08-29 17:34] LABS: CHLORIDE 116 mEq/L (98-107); POTASSIUM 3.4 mEq/L (3.5-5.1); SODIUM 151 mEq/L (136-145)
[2024-08-29 17:35] LABS: CALCIUM 8.6 mg/dL (8.7-10.4); CARBON DIOXIDE 30 mEq/L (21-32)
[2024-08-29 17:40] LABS: CREATININE 1.1 mg/dL (0.6-1.3); GLUCOSE 134 mg/dL (70-105); UREA NITROGEN BLOOD 17 mg/dL (9-23)
[2024-08-29 17:52] LABS: PHOSPHORUS 0.8 mg/dL (2.5-4.9)
[2024-08-29 17:54] LABS: PLATELET ESTIMATE NORMAL
[2024-08-29] MEDS: MORPHINE SULFATE 2 MG/ML INJ (NOT FOR IM USE) IV PRN (18:12)
[2024-08-29] MEDS: CEFAZOLIN 1000MG PREMIX 50 ML IV SCH (18:23)
[2024-08-29] MEDS: DEXT 5%/0.45% NACL KCL 20MEQ/L 1,000 ML IV SCH (18:23)
[2024-08-29] MEDS: PHYTONADIONE 10 MG in DEXTROSE 5% WATER 49 ML IV NR (18:23)
[2024-08-29 18:39] LABS: BG BASE EXCESS 1.1 mmol/L (-2.0-3.0); BG CARBOXYHEMOGLOBIN 0.5 % (0.5-1.5); BG DEOXYHEMOGLOBIN 2.4 % (0.0-5.0); BG FRACTION INSPIRED OXYGEN 40; BG HCO3 ACT 25.8 mmol/L (21.0-28.0); BG METHEMOGLOBIN 0.1 % (0.5-1.5); BG OXYGEN SATURATION 97.6 % (94.0-98.0); BG PCO2 41.3 mmHg (35.0-48.0); BG PH 7.414 (7.350-7.450); BG PO2 107.6 mmHg (83.0-108.0); BG SAMPLE SITE ALINE; BG TOTAL HEMOGLOBIN 11.7 g/dL (13.5-17.5); BG VENT MODE VENT - SIMV
[2024-08-29] MEDS: ALBUMIN HUMAN 25GM/100ML (25%) IV NR (19:46)
[2024-08-29] MEDS: VANCOMYCIN 750MG/150ML (BAXTER) IV SCH (19:53)
[2024-08-29] MEDS: POTASSIUM PHOSPHATE 15 MMOL in DEXT 5% WATER 250 ML IV NR (20:18)
[2024-08-29] MEDS: BACITRACIN 14GM TUBE TOP SCH (20:20)
[2024-08-29] MEDS: IPRATROPIUM/ALBUTEROL 0.5-3(2.5)MG/3ML NEB HHN SCH (20:35)
[2024-08-29] MEDS: ALBUMIN HUMAN 25GM/100ML (25%) IV PRN (20:36)
[2024-08-29] MEDS: NITROGLYCERIN 50MG PREMIX 250 ML IV PRN (21:35)
[2024-08-29 21:48] LABS: BG BASE EXCESS 1.6 mmol/L (-2.0-3.0); BG CARBOXYHEMOGLOBIN 0.2 % (0.5-1.5); BG HCO3 ACT 25.4 mmol/L (21.0-28.0); BG METHEMOGLOBIN 0.3 % (0.5-1.5); BG OXYHEMOGLOBIN 97.5 % (94.0-98.0); BG PCO2 36.4 mmHg (35.0-48.0); BG PH 7.461 (7.350-7.450); BG PO2 112.4 mmHg (83.0-108.0); BG SAMPLE SITE ALINE; BG TOTAL HEMOGLOBIN 9.9 g/dL (13.5-17.5); BG VENT MODE MASK - CPAP
[2024-08-29] MEDS: DOCUSATE SODIUM 100MG CAPSULE PO SCH (21:52)
[2024-08-29] MEDS: ACETAMINOPHEN 1000MG/100ML 100 ML IV PRN (23:03)
[2024-08-30] VITALS (110 sets, daily range): BP systolic 92–159; BP diastolic 43–106; PULSE 92–120; RESP 13–31; TEMP 36.7–37.9; O2SAT 91–100
[2024-08-30 00:56] LABS: CHLORIDE 113 mEq/L (98-107); POTASSIUM 3.7 mEq/L (3.5-5.1); SODIUM 149 mEq/L (136-145)
[2024-08-30 00:57] LABS: CALCIUM 9.3 mg/dL (8.7-10.4); CARBON DIOXIDE 30 mEq/L (21-32)
[2024-08-30 00:58] LABS: BASOPHILS % 0.2 % (0.0-2.0); HEMATOCRIT. 26.7 % (42.0-52.0); HEMOGLOBIN. 9.1 g/dL (14.0-18.0); LYMPHOCYTES % 7.6 % (20.0-50.0); MEAN CORPUSCULAR HEMOGLOBIN 30.5 pg (28.0-32.0); MEAN CORPUSCULAR HGB CONC 34.1 g/dL (31.0-37.0); MEAN CORPUSCULAR VOLUME 89.4 fL (80.0-94.0); MONOCYTES % 7.2 % (2.0-8.0); PLATELET 94 x1000/uL (130-400); RED BLOOD CELL COUNT 2.98 mill/uL (4.7-6.1); WHITE BLOOD COUNT 9.3 x1000/uL (4.5-11.0)
[2024-08-30 01:02] LABS: CREATININE 1.2 mg/dL (0.6-1.3); GLUCOSE 114 mg/dL (70-105); UREA NITROGEN BLOOD 18 mg/dL (9-23)
[2024-08-30 02:22] LABS: PHOSPHORUS 1.5 mg/dL (2.5-4.9)
[2024-08-30] MEDS: POTASSIUM PHOSPHATE 15 MMOL in DEXT 5% WATER 245 ML IV NR (03:50)
[2024-08-30 04:42] LABS: BASOPHILS % 0.1 % (0.0-2.0); HEMATOCRIT. 22.5 % (42.0-52.0); HEMOGLOBIN. 7.7 g/dL (14.0-18.0); LYMPHOCYTES % 9.9 % (20.0-50.0); MEAN CORPUSCULAR HEMOGLOBIN 30.3 pg (28.0-32.0); MEAN CORPUSCULAR VOLUME 89.1 fL (80.0-94.0); MEAN PLATELET VOLUME 8.6 fl (7.4-10.4); MONOCYTES % 6.1 % (2.0-8.0); NEUTROPHILS % 83.9 % (40.0-76.0); PLATELET 95 x1000/uL (130-400); RED BLOOD CELL COUNT 2.52 mill/uL (4.7-6.1); RED CELL DISTRIBUTION WIDTH 13.3 % (11.6-14.6); WHITE BLOOD COUNT 8.3 x1000/uL (4.5-11.0)
[2024-08-30 06:58] LABS: BG BASE EXCESS 2.7 mmol/L (-2.0-3.0); BG CARBOXYHEMOGLOBIN 0.9 % (0.5-1.5); BG DEOXYHEMOGLOBIN 2.1 % (0.0-5.0); BG HCO3 ACT 26.4 mmol/L (21.0-28.0); BG METHEMOGLOBIN 0.2 % (0.5-1.5); BG OXYGEN SATURATION 97.9 % (94.0-98.0); BG OXYHEMOGLOBIN 96.8 % (94.0-98.0); BG PCO2 36.5 mmHg (35.0-48.0); BG PH 7.477 (7.350-7.450); BG PO2 114.6 mmHg (83.0-108.0); BG SAMPLE SITE ALINE; BG TOTAL HEMOGLOBIN 7.5 g/dL (13.5-17.5); BG VENT MODE VENT - CPAP
[2024-08-30 07:22] LABS: CALCIUM 8.6 mg/dL (8.7-10.4); CARBON DIOXIDE 29 mEq/L (21-32); CHLORIDE 114 mEq/L (98-107); POTASSIUM 3.9 mEq/L (3.5-5.1); SODIUM 150 mEq/L (136-145)
[2024-08-30 07:27] LABS: BASOPHILS % 0.1 % (0.0-2.0); CREATININE 1.2 mg/dL (0.6-1.3); HEMATOCRIT. 21.7 % (42.0-52.0); HEMOGLOBIN. 7.4 g/dL (14.0-18.0); MEAN CORPUSCULAR HEMOGLOBIN 30.5 pg (28.0-32.0); MEAN CORPUSCULAR VOLUME 89.9 fL (80.0-94.0); MEAN PLATELET VOLUME 8.8 fl (7.4-10.4); MONOCYTES % 5.6 % (2.0-8.0); NEUTROPHILS % 82.3 % (40.0-76.0); PLATELET 101 x1000/uL (130-400); RED BLOOD CELL COUNT 2.41 mill/uL (4.7-6.1); WHITE BLOOD COUNT 8.4 x1000/uL (4.5-11.0)
[2024-08-30 07:28] LABS: GLUCOSE 127 mg/dL (70-105); TRIGLYCERIDE 72 mg/dL (0-150); UREA NITROGEN BLOOD 19 mg/dL (9-23)
[2024-08-30 07:30] LABS: PHOSPHORUS 3.4 mg/dL (2.5-4.9)
[2024-08-30] MEDS: KCL 10MEQ/50ML PREMIX 100 ML IV PRN (10:12)
[2024-08-30] MEDS ORDERED: RACEPINEPHRINE 2.25% 0.5ML NEB VIAL HHN NR (13:00)
[2024-08-30] MEDS: DEXAMETHASONE 10 MG/ML VIAL IV NR (13:27)
[2024-08-30 16:45] LABS: HEMATOCRIT. 21.1 % (42.0-52.0); HEMOGLOBIN. 7.3 g/dL (14.0-18.0); MEAN CORPUSCULAR HGB CONC 34.3 g/dL (31.0-37.0); MEAN CORPUSCULAR VOLUME 90.3 fL (80.0-94.0); MEAN PLATELET VOLUME 8.9 fl (7.4-10.4); PLATELET 89 x1000/uL (130-400); RED BLOOD CELL COUNT 2.34 mill/uL (4.7-6.1); RED CELL DISTRIBUTION WIDTH 13.2 % (11.6-14.6)
[2024-08-30 16:46] LABS: DIFFERENTIAL COMMENT 1
[2024-08-30 16:57] LABS: CARBON DIOXIDE 28 mEq/L (21-32); CHLORIDE 113 mEq/L (98-107); SODIUM 149 mEq/L (136-145)
[2024-08-30 16:58] LABS: CALCIUM 8.1 mg/dL (8.7-10.4)
[2024-08-30] MEDS: ASPIRIN 81MG EC TABLET PO SCH (16:59)
[2024-08-30 17:02] LABS: CREATININE 1.1 mg/dL (0.6-1.3); GLUCOSE 131 mg/dL (70-105)
[2024-08-30 17:03] LABS: UREA NITROGEN BLOOD 18 mg/dL (9-23)
[2024-08-30 17:05] LABS: PHOSPHORUS 2.4 mg/dL (2.5-4.9)
[2024-08-30] MEDS ORDERED: DEXTROSE 50% WATER 50ML SYRINGE IV PRN (17:15)
[2024-08-30 17:27] LABS: PLATELET ESTIMATE DECREASED
[2024-08-30] MEDS: BLOOD SUGAR DIAGNOSTIC STRIP TEST SCH (17:33)
[2024-08-30] MEDS: INSULIN LISPRO 100 UNITS/ML SUBCUT SCH (17:34)
[2024-08-30] MEDS: METOPROLOL TARTRATE 5MG/5ML VIAL IV NR (18:05)
[2024-08-30] MEDS: MAGNESIUM 2 G PREMIX 50 ML IV NR (18:11)
[2024-08-30] MEDS: AMIODARONE 150MG/100ML D5W 100 ML IV NR (19:40)
[2024-08-30] MEDS: AMIODARONE HCL 900 MG in DEXT 5% WATER 482 ML IV PRN (19:41)
[2024-08-30] MEDS ORDERED: ATORVASTATIN CALCIUM 20MG TABLET PO SCH (21:00)
[2024-08-30] MEDS: ATORVASTATIN CALCIUM 20MG TABLET PO SCH (21:19)
[2024-08-30] MEDS: METOPROLOL TARTRATE 25MG TABLET PO SCH (21:19)
[2024-08-31] VITALS (101 sets, daily range): BP systolic 90–132; BP diastolic 57–97; PULSE 70–105; RESP 15–38; TEMP 37.1–37.8; O2SAT 87–100
[2024-08-31] MEDS ORDERED: NICARDIPINE 20MG/200ML PREMIX 200 ML IV PRN (01:15)
[2024-08-31] MEDS: NICARDIPINE 50 MG in SODIUM CHLORIDE 0.9% 250 ML IV PRN (01:50)
[2024-08-31 02:35] LABS: BG BASE EXCESS -5.5 mmol/L (-2.0-3.0); BG CARBOXYHEMOGLOBIN 0.8 % (0.5-1.5); BG DEOXYHEMOGLOBIN 8.6 % (0.0-5.0); BG HCO3 ACT 18.4 mmol/L (21.0-28.0); BG METHEMOGLOBIN 0.3 % (0.5-1.5); BG OXYGEN SATURATION 91.3 % (94.0-98.0); BG OXYHEMOGLOBIN 90.3 % (94.0-98.0); BG PCO2 29.4 mmHg (35.0-48.0); BG PH 7.415 (7.350-7.450); BG PO2 63.9 mmHg (83.0-108.0); BG TOTAL HEMOGLOBIN 7.1 g/dL (13.5-17.5); BG VENT MODE MASK - SIMPLE
[2024-08-31] MEDS: FUROSEMIDE 20MG/2ML VIAL IVP NR (03:30)
[2024-08-31] MEDS: POTASSIUM CHLORIDE 10MEQ TABLET SR PO NR (04:14)
[2024-08-31 04:16] LABS: BG BASE EXCESS -1.9 mmol/L (-2.0-3.0); BG CARBOXYHEMOGLOBIN 0.5 % (0.5-1.5); BG DEOXYHEMOGLOBIN 4.2 % (0.0-5.0); BG FRACTION INSPIRED OXYGEN 80; BG HCO3 ACT 20.9 mmol/L (21.0-28.0); BG METHEMOGLOBIN 0.1 % (0.5-1.5); BG OXYGEN SATURATION 95.8 % (94.0-98.0); BG OXYHEMOGLOBIN 95.2 % (94.0-98.0); BG PCO2 27.6 mmHg (35.0-48.0); BG PH 7.498 (7.350-7.450); BG PO2 79.5 mmHg (83.0-108.0); BG TOTAL HEMOGLOBIN 7.3 g/dL (13.5-17.5); BG VENT MODE HIGH FLOW
[2024-08-31 04:29] LABS: BASOPHILS % 0.1 % (0.0-2.0); DIFFERENTIAL COMMENT 0; LYMPHOCYTES % 7.7 % (20.0-50.0); MEAN CORPUSCULAR HEMOGLOBIN 30.2 pg (28.0-32.0); MEAN CORPUSCULAR HGB CONC 33.4 g/dL (31.0-37.0); MEAN CORPUSCULAR VOLUME 90.4 fL (80.0-94.0); MONOCYTES % 5.3 % (2.0-8.0); NEUTROPHILS % 86.9 % (40.0-76.0); PLATELET 106 x1000/uL (130-400); RED BLOOD CELL COUNT 2.28 mill/uL (4.7-6.1); RED CELL DISTRIBUTION WIDTH 13.2 % (11.6-14.6); WHITE BLOOD COUNT 13.4 x1000/uL (4.5-11.0)
[2024-08-31 04:42] LABS: CHLORIDE 107 mEq/L (98-107); POTASSIUM 4.6 mEq/L (3.5-5.1)
[2024-08-31 04:50] LABS: HEMATOCRIT. 20.7 % (42.0-52.0); HEMOGLOBIN. 6.9 g/dL (14.0-18.0)
[2024-08-31 05:29] LABS: CARBON DIOXIDE 23 mEq/L (21-32); SODIUM 141 mEq/L (136-145)
[2024-08-31 05:30] LABS: CALCIUM 8.4 mg/dL (8.7-10.4); CREATININE 1.2 mg/dL (0.6-1.3); UREA NITROGEN BLOOD 23 mg/dL (9-23)
[2024-08-31 05:31] LABS: PHOSPHORUS 2.6 mg/dL (2.5-4.9)
[2024-08-31 05:35] LABS: GLUCOSE 407 mg/dL (70-105)
[2024-08-31] MEDS ORDERED: DEXTROSE 50% WATER 50ML SYRINGE IV PRN ×2 (06:00)
[2024-08-31] MEDS: INSULIN REGULAR 100U/100ML PMX 100 ML IV SCH (06:29)
[2024-08-31] MEDS: HYDRALAZINE 20MG/ML VIAL IV SCH (06:31)
[2024-08-31] MEDS: METHYLPREDNISOLONE SOD SUCC 125MG/2ML (ACT-O-VIAL) IV SCH (06:31)
[2024-08-31] MEDS: BLOOD SUGAR DIAGNOSTIC STRIP TEST SCH ×2 (06:31→22:01)
[2024-08-31 07:11] LABS: BASOPHILS % 0.1 % (0.0-2.0); HEMATOCRIT. 21.6 % (42.0-52.0); HEMOGLOBIN. 7.2 g/dL (14.0-18.0); LYMPHOCYTES % 7.1 % (20.0-50.0); MEAN CORPUSCULAR HEMOGLOBIN 30.3 pg (28.0-32.0); MEAN CORPUSCULAR HGB CONC 33.5 g/dL (31.0-37.0); MEAN CORPUSCULAR VOLUME 90.5 fL (80.0-94.0); MEAN PLATELET VOLUME 9.5 fl (7.4-10.4); NEUTROPHILS % 87.8 % (40.0-76.0); PLATELET 107 x1000/uL (130-400); RED BLOOD CELL COUNT 2.39 mill/uL (4.7-6.1); RED CELL DISTRIBUTION WIDTH 13.3 % (11.6-14.6); WHITE BLOOD COUNT 11.4 x1000/uL (4.5-11.0)
[2024-08-31] MEDS: FERROUS SULFATE 325MG TABLET PO SCH (08:05)
[2024-08-31] MEDS: MULTIVITAMINS,THER W-MINERALS TABLET PO SCH (08:06)
[2024-08-31 08:09] LABS: CHLORIDE 107 mEq/L (98-107); POTASSIUM 4.7 mEq/L (3.5-5.1); SODIUM 142 mEq/L (136-145)
[2024-08-31 08:10] LABS: CARBON DIOXIDE 25 mEq/L (21-32)
[2024-08-31 08:11] LABS: CALCIUM 8.5 mg/dL (8.7-10.4)
[2024-08-31 08:15] LABS: CREATININE 1.4 mg/dL (0.6-1.3); GLUCOSE 389 mg/dL (70-105)
[2024-08-31 08:16] LABS: UREA NITROGEN BLOOD 24 mg/dL (9-23)
[2024-08-31 08:18] LABS: PHOSPHORUS 2.1 mg/dL (2.5-4.9)
[2024-08-31] MEDS: AMLODIPINE 5MG TABLET PO SCH (11:19)
[2024-08-31] MEDS: DEXT 5%/0.45% NACL 1000ML 1,000 ML IV SCH (11:20)
[2024-08-31] MEDS: AMLODIPINE 10MG TABLET PO SCH (12:00)
[2024-08-31] MEDS: CARVEDILOL 12.5MG TABLET PO SCH (13:37)
[2024-08-31] MEDS: ISOSORBIDE DINITRATE 20MG TABLET PO SCH (13:37)
[2024-08-31] MEDS ORDERED: AMIODARONE HCL 450 MG in DEXT 5% WATER 241 ML IV PRN (16:30)
[2024-08-31] MEDS: AMIODARONE 200MG TABLET PO SCH (20:11)
[2024-08-31] MEDS ORDERED: CARVEDILOL 6.25 MG TABLET PO SCH (21:00)
[2024-09-01] VITALS (90 sets, daily range): BP systolic 93–136; BP diastolic 57–83; PULSE 78–99; RESP 14–27; TEMP 36.6–37; O2SAT 91–100
[2024-09-01 04:47] LABS: BASOPHILS % 0.1 % (0.0-2.0); LYMPHOCYTES % 8.2 % (20.0-50.0); MEAN CORPUSCULAR HEMOGLOBIN 30.9 pg (28.0-32.0); MEAN CORPUSCULAR HGB CONC 34.5 g/dL (31.0-37.0); MEAN CORPUSCULAR VOLUME 89.5 fL (80.0-94.0); MEAN PLATELET VOLUME 9.1 fl (7.4-10.4); MONOCYTES % 4.9 % (2.0-8.0); NEUTROPHILS % 86.8 % (40.0-76.0); PLATELET 92 x1000/uL (130-400); RED BLOOD CELL COUNT 2.27 mill/uL (4.7-6.1); RED CELL DISTRIBUTION WIDTH 13.4 % (11.6-14.6); WHITE BLOOD COUNT 10.7 x1000/uL (4.5-11.0)
[2024-09-01 05:02] LABS: HEMATOCRIT. 20.3 % (42.0-52.0)
[2024-09-01 05:04] LABS: CHLORIDE 109 mEq/L (98-107); POTASSIUM 4.3 mEq/L (3.5-5.1); SODIUM 143 mEq/L (136-145)
[2024-09-01 05:05] LABS: CARBON DIOXIDE 28 mEq/L (21-32)
[2024-09-01 05:10] LABS: CREATININE 1.1 mg/dL (0.6-1.3)
[2024-09-01 05:11] LABS: UREA NITROGEN BLOOD 33 mg/dL (9-23)
[2024-09-01 05:13] LABS: PHOSPHORUS 1.8 mg/dL (2.5-4.9)
[2024-09-01 05:17] LABS: GLUCOSE 120 mg/dL (70-105)
[2024-09-01] MEDS ORDERED: HYDROCODONE/ACETAMINOPHEN 10/325MG TABLET PO PRN (05:45)
[2024-09-01] MEDS: SODIUM PHOSPHATE 10 MMOL in DEXT 5% WATER 246.6667 ML IV NR (06:43)
[2024-09-01] MEDS: CALCIUM GLUCONATE 1GM PREMIX 50 ML IV NR (06:43)
[2024-09-01 10:22] LABS: HEMATOCRIT. 21.8 % (42.0-52.0); HEMOGLOBIN. 7.3 g/dL (14.0-18.0); MEAN CORPUSCULAR HEMOGLOBIN 30.4 pg (28.0-32.0); MEAN CORPUSCULAR HGB CONC 33.5 g/dL (31.0-37.0); MEAN PLATELET VOLUME 9.3 fl (7.4-10.4); PLATELET 118 x1000/uL (130-400); RED BLOOD CELL COUNT 2.39 mill/uL (4.7-6.1); RED CELL DISTRIBUTION WIDTH 13.3 % (11.6-14.6); WHITE BLOOD COUNT 13.3 x1000/uL (4.5-11.0)
[2024-09-01 10:40] LABS: DIFFERENTIAL COMMENT 1
[2024-09-01 11:08] LABS: CARBON DIOXIDE 24 mEq/L (21-32); CHLORIDE 108 mEq/L (98-107); SODIUM 140 mEq/L (136-145)
[2024-09-01 11:10] LABS: CALCIUM 8.6 mg/dL (8.7-10.4)
[2024-09-01 11:14] LABS: CREATININE 1.2 mg/dL (0.6-1.3); GLUCOSE 194 mg/dL (70-105); UREA NITROGEN BLOOD 36 mg/dL (9-23)
[2024-09-01 11:16] LABS: PHOSPHORUS 2.5 mg/dL (2.5-4.9)
[2024-09-01 12:19] LABS: PLATELET ESTIMATE SLIGHTLY DECREASED
[2024-09-01 12:20] LABS: ANISOCYTOSIS 1+
[2024-09-01] MEDS: HYDROCODONE/ACETAMINOPHEN 5/325MG TABLET PO PRN (13:57)
[2024-09-01] MEDS: METHYLPREDNISOLONE SOD SUCC 125MG/2ML (ACT-O-VIAL) IV SCH (20:55)
[2024-09-02] VITALS (88 sets, daily range): BP systolic 102–143; BP diastolic 60–102; PULSE 79–97; RESP 13–28; TEMP 36.4–37.1; O2SAT 91–100
[2024-09-02] MEDS: BLOOD SUGAR DIAGNOSTIC STRIP TEST SCH ×2 (06:00→17:11)
[2024-09-02 07:25] LABS: CARBON DIOXIDE 26 mEq/L (21-32); CHLORIDE 108 mEq/L (98-107); SODIUM 142 mEq/L (136-145)
[2024-09-02 07:30] LABS: GLUCOSE 153 mg/dL (70-105)
[2024-09-02 07:31] LABS: UREA NITROGEN BLOOD 35 mg/dL (9-23)
[2024-09-02 07:32] LABS: ALANINE AMINOTRANSFERASE 67 IU/L (10-49); ALBUMIN 3.6 g/dL (3.2-4.8); ASPARTATE AMINOTRANSFERASE 82 IU/L (<34)
[2024-09-02 07:33] LABS: BILIRUBIN TOTAL 0.7 mg/dL (0.1-1.0); PROTEIN TOTAL 5.5 g/dL (6.0-8.3)
[2024-09-02] MEDS: TAMSULOSIN HCL 0.4MG SR CAPSULE PO SCH (08:26)
[2024-09-02 08:48] LABS: BASOPHILS % 0.1 % (0.0-2.0); HEMATOCRIT. 22.4 % (42.0-52.0); HEMOGLOBIN. 7.6 g/dL (14.0-18.0); LYMPHOCYTES % 7.4 % (20.0-50.0); MEAN CORPUSCULAR HEMOGLOBIN 29.9 pg (28.0-32.0); MEAN CORPUSCULAR HGB CONC 33.8 g/dL (31.0-37.0); MEAN CORPUSCULAR VOLUME 88.5 fL (80.0-94.0); MONOCYTES % 3.9 % (2.0-8.0); NEUTROPHILS % 88.6 % (40.0-76.0); PLATELET 140 x1000/uL (130-400); RED BLOOD CELL COUNT 2.54 mill/uL (4.7-6.1); RED CELL DISTRIBUTION WIDTH 13.1 % (11.6-14.6); WHITE BLOOD COUNT 8.8 x1000/uL (4.5-11.0)
[2024-09-02] MEDS: CALCIUM GLUCONATE 1GM PREMIX 50 ML IV NR (09:42)
[2024-09-02] MEDS ORDERED: BISACODYL 5MG TABLET PO PRN (11:45)
[2024-09-02] MEDS ORDERED: DEXTROSE 50% WATER 50ML SYRINGE IV PRN (13:45)
[2024-09-02] MEDS ORDERED: NALOXONE HCL 0.4MG/ML VIAL IV PRN (14:00)
[2024-09-02] MEDS: INSULIN LISPRO 100 UNITS/ML SUBCUT SCH (17:45)
[2024-09-02] MEDS: INSULIN GLARGINE 100 UNITS/ML SUBCUT SCH (21:12)
[2024-09-03] VITALS (52 sets, daily range): BP systolic 101–139; BP diastolic 46–97; PULSE 79–107; RESP 14–25; TEMP 36.7–37.1; O2SAT 91–100
[2024-09-03] MEDS: LACTULOSE 20G/30ML UDC PO PRN (06:44)
[2024-09-03 07:17] LABS: BASOPHILS % 0.1 % (0.0-2.0); HEMATOCRIT. 25.1 % (42.0-52.0); HEMOGLOBIN. 8.7 g/dL (14.0-18.0); LYMPHOCYTES % 10.4 % (20.0-50.0); MEAN CORPUSCULAR HEMOGLOBIN 31.1 pg (28.0-32.0); MEAN CORPUSCULAR HGB CONC 34.6 g/dL (31.0-37.0); MEAN CORPUSCULAR VOLUME 90.1 fL (80.0-94.0); MEAN PLATELET VOLUME 8.8 fl (7.4-10.4); MONOCYTES % 5.9 % (2.0-8.0); NEUTROPHILS % 83.6 % (40.0-76.0); PLATELET 190 x1000/uL (130-400); RED BLOOD CELL COUNT 2.79 mill/uL (4.7-6.1)
[2024-09-03 07:24] LABS: CARBON DIOXIDE 24 mEq/L (21-32); CHLORIDE 107 mEq/L (98-107); POTASSIUM 4.3 mEq/L (3.5-5.1); SODIUM 140 mEq/L (136-145)
[2024-09-03 07:25] LABS: CALCIUM 8.3 mg/dL (8.7-10.4)
[2024-09-03 07:29] LABS: GLUCOSE 284 mg/dL (70-105)
[2024-09-03 07:30] LABS: UREA NITROGEN BLOOD 34 mg/dL (9-23)
[2024-09-03 07:31] LABS: ALANINE AMINOTRANSFERASE 264 IU/L (10-49); ALBUMIN 3.7 g/dL (3.2-4.8)
[2024-09-03 07:32] LABS: ASPARTATE AMINOTRANSFERASE 260 IU/L (<34); PROTEIN TOTAL 5.3 g/dL (6.0-8.3)
[2024-09-03 07:47] LABS: DIFFERENTIAL COMMENT 1
[2024-09-03] MEDS ORDERED: HYDR-4001 MT (12:09)
[2024-09-03] MEDS ORDERED: ISOS20TA8 MT (12:55)
[2024-09-03] MEDS ORDERED: AMIO100T4 MT (12:56)
[2024-09-03] MEDS ORDERED: COR12 MT (12:58)
[2024-09-03] MEDS ORDERED: ASPI-1406 MT (12:59)
[2024-09-03] MEDS ORDERED: CARVEDILOL 12.5MG TABLET PO SCH (21:00)
== END 2024-09-03 15:23 | disposition home health service (06) | DRG 233 ==
LOC: CCL 19:17 → 3WST 19:20 → CVICU 08-29 14:08
PROVIDERS: ADMIT Internal Medicine; ATTEND Internal Medicine
PROC: 4A023N7 Measurement of Cardiac Sampling and Pressure, Left Heart, Percutaneous Approach (ICD-10-PCS; principal; 2024-08-27)
PROC: B211YZZ Fluoroscopy of Multiple Coronary Arteries using Other Contrast (ICD-10-PCS; 2024-08-27)
PROC: 02100Z9 Bypass Coronary Artery, One Artery from Left Internal Mammary, Open Approach (ICD-10-PCS; 2024-08-29)
PROC: 021109W Bypass Coronary Artery, Two Arteries from Aorta with Autologous Venous Tissue, Open Approach (ICD-10-PCS; 2024-08-29)
PROC: 06BP4ZZ Excision of Right Saphenous Vein, Percutaneous Endoscopic Approach (ICD-10-PCS; 2024-08-29)
PROC: B24BZZ4 Ultrasonography of Heart with Aorta, Transesophageal (ICD-10-PCS; 2024-08-29)
PROC: 30233R1 Transfusion of Nonautologous Platelets into Peripheral Vein, Percutaneous Approach (ICD-10-PCS; 2024-08-29)
PROC: 5A0935A Assistance with Respiratory Ventilation, Less than 24 Consecutive Hours, High Flow/Velocity Cannula (ICD-10-PCS; 2024-08-31)
DX: I25.110 Atherosclerotic heart disease of native coronary artery with unstable angina pectoris (principal); J96.00 Acute respiratory failure, unspecified whether with hypoxia or hypercapnia; E87.0 Hyperosmolality and hypernatremia; N17.9 Acute kidney failure, unspecified; Z20.822 Contact with and (suspected) exposure to COVID-19; I16.0 Hypertensive urgency; E11.9 Type 2 diabetes mellitus without complications; I10 Essential (primary) hypertension; E78.5 Hyperlipidemia, unspecified; D50.9 Iron deficiency anemia, unspecified; I95.9 Hypotension, unspecified; D63.8 Anemia in other chronic diseases classified elsewhere; E83.39 Other disorders of phosphorus metabolism; E78.00 Pure hypercholesterolemia, unspecified; Z79.84 Long term (current) use of oral hypoglycemic drugs; K59.00 Constipation, unspecified; Z79.82 Long term (current) use of aspirin; Z79.899 Other long term (current) drug therapy
CPT/HCPCS: 36415; 36600; 71045; 71046; 80048; 80053; 80061; 80202; 81003; 82375; 82803; 82805; 82962; 83036; 83735; 84100; 84478; 85025; 85347; 85384; 86705; 86850; 86900; 86920; 87070; 87340; 87426; 93005; 93306; 93458; 93880; 93970; 94002; 94003; 94070; 94640; 94664; 97110; 97116; 97162; 97166; 97530; 97535; 98960; A4606; C1725; C1729; C1751; C1758; C1769; C1887; C1893; J0282; J0330; J0360; J0610; J0665; J0690; J1100; J1200; J1265; J1644; J1815; J1940; J2003; J2250; J2270; J2440; J2597; J2704; J2720; J2919; J3010; J3370; J3430; J3475; J3480; J3490; J7050; J7060; L3908; P9034; P9047; Q9967; J0131

== ENCOUNTER 2024-10-18 18:34 | Inpatient (IN) | payer BC ==
[~2024-10-18] VITALS: Ht 170.2 cm; Wt 82.7 kg
[~2024-10-18 18:34] MED LIST changes: +AMIO100T4 MT; +ASPI-1406 MT; -ATROPINE SULFATE 1MG/10ML SYR IV PRN; -CHOL400T31 PO; +COR12 MT; -DIPHENHYDRAMINE 50MG/ML VIAL ONE; -FENTANYL CITRATE/PF 50MCG/ML 2ML VIAL ONE; -GABA-1180 PO; -HEPARIN 1000 UNITS/ML 10ML ONE; +HYDR-4001 MT; -IODIXANOL 320MG/ML 100 ML BOTTLE IV ONE; +ISOS20TA8 MT; -LIDOCAINE HCL 1% 10 MG/ML 10ML VIAL ONE; -LINA5TAB PO; -LOSA25TA26 PO; -MIDAZOLAM HCL 2 MG/2 ML VIAL ONE; -SIMV-43 PO; -SODIUM CHLORIDE 0.45% 500 ML IV NR; -VERAPAMIL HCL 2.5 MG/1 ML 2ML VIAL IV ONE
[2024-10-18 20:23] LABS: BASOPHILS % 0.9 % (0.0-2.0); EOSINOPHILS % 2.4 % (0.0-5.0); HEMATOCRIT. 39.8 % (42.0-52.0); HEMOGLOBIN. 12.8 g/dL (14.0-18.0); LYMPHOCYTES % 24.5 % (20.0-50.0); MEAN CORPUSCULAR HEMOGLOBIN 26.1 pg (28.0-32.0); MEAN CORPUSCULAR HGB CONC 32.1 g/dL (31.0-37.0); MEAN CORPUSCULAR VOLUME 81.4 fL (80.0-94.0); MEAN PLATELET VOLUME 8.1 fl (7.4-10.4); MONOCYTES % 7.9 % (2.0-8.0); NEUTROPHILS % 64.3 % (40.0-76.0); PLATELET 229 x1000/uL (130-400); RED BLOOD CELL COUNT 4.88 mill/uL (4.7-6.1); RED CELL DISTRIBUTION WIDTH 16.8 % (11.6-14.6); WHITE BLOOD COUNT 5.4 x1000/uL (4.5-11.0)
[2024-10-18 20:32] LABS: CHLORIDE 105 mEq/L (98-107); POTASSIUM 4.3 mEq/L (3.5-5.1); SODIUM 140 mEq/L (136-145)
[2024-10-18 20:33] LABS: CALCIUM 10.5 mg/dL (8.7-10.4); CARBON DIOXIDE 29 mEq/L (21-32); PROTHROMBIN TIME 10.4 sec (9.6-11.0)
[2024-10-18 20:38] LABS: CREATININE 1.1 mg/dL (0.6-1.3); GLUCOSE 186 mg/dL (70-105); UREA NITROGEN BLOOD 18 mg/dL (9-23)
[2024-10-18 20:39] LABS: ALANINE AMINOTRANSFERASE 17 IU/L (10-49); ASPARTATE AMINOTRANSFERASE 17 IU/L (<34)
[2024-10-18 20:40] LABS: ALBUMIN 4.5 g/dL (3.2-4.8); BILIRUBIN DIRECT 0.1 mg/dL (<=3.0); BILIRUBIN TOTAL 0.5 mg/dL (0.1-1.0); PROTEIN TOTAL 7.4 g/dL (6.0-8.3)
[2024-10-18 20:50] LABS: LACTIC ACID 2.2 mmol/L (0.4-2.0)
[2024-10-18] MEDS: VANCOMYCIN 1G PREMIX 200 ML IV ONE (20:50)
[2024-10-18] MEDS: LACTATED RINGERS 1,000 ML IV ONE (21:05)
[2024-10-18 21:27] LABS: CLARITY URINE CLEAR (CLEAR); COLOR URINE YELLOW (YELLOW); GLUCOSE URINE 3+ (NEGATIVE); KETONES URINE TRACE (NEGATIVE); LEUKOCYTE ESTERASE URINE NEGATIVE (NEGATIVE); NITRITE URINE NEGATIVE (NEGATIVE); OCCULT BLOOD URINE NEGATIVE (NEGATIVE); PROTEIN URINE NEGATIVE (NEGATIVE); UROBILINOGEN URINE 0.2 E.U./dL (0.2-1.0)
[2024-10-18] MEDS ORDERED: ACETAMINOPHEN 325MG TABLET PO PRN (22:00)
[2024-10-18] MEDS ORDERED: DOCUSATE SODIUM 100MG CAPSULE PO PRN (22:00)
[2024-10-18] MEDS ORDERED: NITROGLYCERIN 0.4MG TABLET SL SL SCH (22:00)
[2024-10-18] MEDS ORDERED: CLONIDINE 0.1MG TABLET PO PRN (22:00)
[2024-10-18] MEDS ORDERED: ONDANSETRON HCL 4MG/2ML INJ IV PRN (22:00)
[2024-10-18] MEDS ORDERED: HYDROCODONE/ACETAMINOPHEN 5/325MG TABLET PO PRN ×2 (22:00)
[2024-10-18] MEDS: VANCOMYCIN 1G PREMIX 200 ML IV NR (22:23)
[2024-10-18] MEDS: ENOXAPARIN 40MG/0.4ML SYR SUBCUT SCH (22:39)
[2024-10-18] MEDS: IOHEXOL-300 100 ML BOTTLE ONE (22:43)
[2024-10-18 22:49] LABS: BACTERIA URINE NONE SEEN; RBC URINE NONE SEEN /hpf (0-2); WBC URINE NONE SEEN /hpf (0-2)
[2024-10-19] VITALS: BP 149/92; PULSE 90; RESP 16; TEMP 36.8; O2SAT 96
[2024-10-19 00:23] VITALS: BP 149/92; PULSE 90; RESP 16; TEMP 36.8
[2024-10-19] MEDS ORDERED: DEXTROSE 50% WATER 50ML SYRINGE IV PRN (03:00)
[2024-10-19] MEDS: INSULIN LISPRO 100 UNITS/ML SUBCUT SCH (06:38)
[2024-10-19] MEDS: BLOOD SUGAR DIAGNOSTIC STRIP TEST SCH (06:38)
[2024-10-19 07:51] LABS: BASOPHILS % 0.8 % (0.0-2.0); DIFFERENTIAL COMMENT 0; EOSINOPHILS % 2.4 % (0.0-5.0); HEMATOCRIT. 37.5 % (42.0-52.0); LYMPHOCYTES % 22.9 % (20.0-50.0); MEAN CORPUSCULAR HEMOGLOBIN 25.6 pg (28.0-32.0); MEAN CORPUSCULAR VOLUME 79.9 fL (80.0-94.0); MEAN PLATELET VOLUME 8.4 fl (7.4-10.4); MONOCYTES % 7.7 % (2.0-8.0); NEUTROPHILS % 66.2 % (40.0-76.0); PLATELET 209 x1000/uL (130-400); RED BLOOD CELL COUNT 4.69 mill/uL (4.7-6.1); RED CELL DISTRIBUTION WIDTH 16.3 % (11.6-14.6); WHITE BLOOD COUNT 5.5 x1000/uL (4.5-11.0)
[2024-10-19 07:59] LABS: CALCIUM 9.7 mg/dL (8.7-10.4); CHLORIDE 102 mEq/L (98-107); POTASSIUM 4.2 mEq/L (3.5-5.1); SODIUM 140 mEq/L (136-145)
[2024-10-19 08:00] VITALS: BP 130/87; PULSE 82; RESP 12; TEMP 36.8; O2SAT 97
[2024-10-19 08:00] LABS: CARBON DIOXIDE 25 mEq/L (21-32)
[2024-10-19 08:04] LABS: CREATININE 1.1 mg/dL (0.6-1.3)
[2024-10-19 08:05] LABS: GLUCOSE 145 mg/dL (70-105); UREA NITROGEN BLOOD 17 mg/dL (9-23)
[2024-10-19] MEDS: ISOSORBIDE DINITRATE 20MG TABLET PO SCH (09:05)
[2024-10-19] MEDS: CARVEDILOL 12.5MG TABLET PO SCH (09:05)
[2024-10-19] MEDS: ASPIRIN 81MG EC TABLET PO SCH (09:05)
[2024-10-19] MEDS: LOSARTAN 100 MG TABLET PO SCH (09:06)
[2024-10-19] MEDS: AMLODIPINE 5MG TABLET PO SCH (09:06)
[2024-10-19] MEDS: FOLIC ACID 1MG TABLET PO SCH (09:06)
[2024-10-19] MEDS: GLIPIZIDE 5MG TABLET PO SCH (09:06)
[2024-10-19 12:00] VITALS: BP 106/76; PULSE 80; RESP 14; TEMP 36.7; O2SAT 98
[2024-10-19 16:00] VITALS: BP 106/76; PULSE 80; TEMP 98; O2SAT 98
== END 2024-10-19 16:23 | disposition home or self-care (01) | DRG 863 ==
LOC: ER 18:34 → EDBEDREQ 21:11 → 3WST 21:35 → EDBEDREQ 21:37 → EDBEDREQSVC 23:28
PROVIDERS: ADMIT Internal Medicine Nephrology; ATTEND Internal Medicine Nephrology
DX: T81.40XA Infection following a procedure, unspecified, initial encounter (principal); E11.9 Type 2 diabetes mellitus without complications; E78.00 Pure hypercholesterolemia, unspecified; I10 Essential (primary) hypertension; I25.10 Atherosclerotic heart disease of native coronary artery without angina pectoris; L90.5 Scar conditions and fibrosis of skin; Z79.82 Long term (current) use of aspirin; Z95.1 Presence of aortocoronary bypass graft; Y83.8 Other surgical procedures as the cause of abnormal reaction of the patient, or of later complication, without mention of misadventure at the time of the procedure; Y92.89 Other specified places as the place of occurrence of the external cause
CPT/HCPCS: 36415; 73700; 80048; 80076; 81003; 82962; 83036; 83605; 83735; 84145; 85025; 93005; 99291; A4606; J1650; J3370; J7120; Q9967

== ENCOUNTER → 2024-11-27 | Outpatient (CLI) | payer BC ==
[2024-11-27 10:46] LABS: BASOPHILS % 0.5 % (0.0-2.0); DIFFERENTIAL COMMENT 0; HEMATOCRIT. 41.3 % (42.0-52.0); HEMOGLOBIN. 13.2 g/dL (14.0-18.0); LYMPHOCYTES % 31.1 % (20.0-50.0); MEAN CORPUSCULAR HEMOGLOBIN 23.7 pg (28.0-32.0); MEAN CORPUSCULAR HGB CONC 31.9 g/dL (31.0-37.0); MEAN CORPUSCULAR VOLUME 74.2 fL (80.0-94.0); MEAN PLATELET VOLUME 7.7 fl (7.4-10.4); MONOCYTES % 7.5 % (2.0-8.0); NEUTROPHILS % 59.9 % (40.0-76.0); PLATELET 201 x1000/uL (130-400); RED BLOOD CELL COUNT 5.56 mill/uL (4.7-6.1); RED CELL DISTRIBUTION WIDTH 17.5 % (11.6-14.6); WHITE BLOOD COUNT 5.5 x1000/uL (4.5-11.0)
[2024-11-27 10:50] LABS: CLARITY URINE CLEAR (CLEAR); COLOR URINE YELLOW (YELLOW); GLUCOSE URINE 3+ (NEGATIVE); KETONES URINE NEGATIVE (NEGATIVE); LEUKOCYTE ESTERASE URINE NEGATIVE (NEGATIVE); NITRITE URINE NEGATIVE (NEGATIVE); OCCULT BLOOD URINE NEGATIVE (NEGATIVE); PROTEIN URINE NEGATIVE (NEGATIVE); SPECIFIC GRAVITY URINE 1.031 (1.005-1.030); UROBILINOGEN URINE 0.2 E.U./dL (0.2-1.0)
[2024-11-27 11:05] LABS: CHLORIDE 105 mEq/L (98-107); POTASSIUM 4.3 mEq/L (3.5-5.1); SODIUM 142 mEq/L (136-145)
[2024-11-27 11:06] LABS: CALCIUM 9.2 mg/dL (8.7-10.4); CARBON DIOXIDE 30 mEq/L (21-32)
[2024-11-27 11:11] LABS: CREATININE 1.1 mg/dL (0.6-1.3); GLUCOSE 97 mg/dL (70-105); TRIGLYCERIDE 170 mg/dL (0-150); UREA NITROGEN BLOOD 14 mg/dL (9-23)
[2024-11-27 11:12] LABS: LDL CHOLESTEROL 56 mg/dL (5-100)
[2024-11-27 11:13] LABS: CHOLESTEROL 114 mg/dL (<200); HDL CHOLESTEROL 31 mg/dL (>55)
[2024-11-27 11:28] LABS: BACTERIA URINE NONE SEEN; RBC URINE NONE SEEN /hpf (0-2); SQUAMOUS EPITHELIAL CELL URINE NONE SEEN /lpf (RARE/1+); WBC URINE 0-2 /hpf (0-2)
== END | disposition home or self-care (01) ==
LOC: LAB 10:12
PROVIDERS: ATTEND Internal Medicine Nephrology
DX: I12.9 Hypertensive chronic kidney disease with stage 1 through stage 4 chronic kidney disease, or unspecified chronic kidney disease (principal); E11.319 Type 2 diabetes mellitus with unspecified diabetic retinopathy without macular edema; E11.22 Type 2 diabetes mellitus with diabetic chronic kidney disease; N18.2 Chronic kidney disease, stage 2 (mild)
CPT/HCPCS: 36415; 80048; 80061; 81003; 82306; 83036; 85025

== ENCOUNTER → 2025-03-01 | Outpatient (CLI) | payer BC ==
[2025-03-01 08:31] LABS: BASOPHILS % 0.6 % (0.0-2.0); EOSINOPHILS % 1.5 % (0.0-5.0); HEMATOCRIT. 46.7 % (42.0-52.0); HEMOGLOBIN. 15.2 g/dL (14.0-18.0); LYMPHOCYTES % 26.8 % (20.0-50.0); MEAN PLATELET VOLUME 8.2 fl (7.4-10.4); MONOCYTES % 6.9 % (2.0-8.0); NEUTROPHILS % 64.2 % (40.0-76.0); PLATELET 164 x1000/uL (130-400); RED BLOOD CELL COUNT 5.97 mill/uL (4.7-6.1); RED CELL DISTRIBUTION WIDTH 19.7 % (11.6-14.6)
[2025-03-01 08:43] LABS: CLARITY URINE CLEAR (CLEAR); COLOR URINE YELLOW (YELLOW); GLUCOSE URINE 3+ (NEGATIVE); KETONES URINE TRACE (NEGATIVE); LEUKOCYTE ESTERASE URINE NEGATIVE (NEGATIVE); NITRITE URINE NEGATIVE (NEGATIVE); OCCULT BLOOD URINE NEGATIVE (NEGATIVE); PH URINE 6.0 (4.5-8.0); PROTEIN URINE NEGATIVE (NEGATIVE); SPECIFIC GRAVITY URINE 1.035 (1.005-1.030); UROBILINOGEN URINE 0.2 E.U./dL (0.2-1.0)
[2025-03-01 08:47] LABS: CREATININE 1.2 mg/dL (0.6-1.3); GLUCOSE FASTING 139 mg/dL (70-105)
[2025-03-01 08:48] LABS: LDL CHOLESTEROL 63 mg/dL (5-100); TRIGLYCERIDE 393 mg/dL (0-150); UREA NITROGEN BLOOD 21 mg/dL (9-23)
[2025-03-01 08:49] LABS: ASPARTATE AMINOTRANSFERASE 19 IU/L (<34); T4 FREE 1.45 ng/dL (0.89-1.76)
[2025-03-01 08:50] LABS: BILIRUBIN TOTAL 0.8 mg/dL (0.1-1.0); PROTEIN TOTAL 7.3 g/dL (6.0-8.3)
[2025-03-01 09:06] LABS: MUCUS URINE TRACE /lpf (NONE/TRACE); SQUAMOUS EPITHELIAL CELL URINE RARE /lpf (RARE/1+)
[2025-03-01 09:07] LABS: RBC URINE 0-2 /hpf (0-2); WBC URINE 0-2 /hpf (0-2)
[2025-03-01 09:08] LABS: BACTERIA URINE NONE SEEN
== END | disposition home or self-care (01) ==
LOC: LAB 07:44
PROVIDERS: ATTEND Internal Medicine Nephrology
DX: I10 Essential (primary) hypertension (principal); E11.40 Type 2 diabetes mellitus with diabetic neuropathy, unspecified; E78.5 Hyperlipidemia, unspecified; Z95.1 Presence of aortocoronary bypass graft
CPT/HCPCS: 36415; 80053; 80061; 81003; 82306; 82947; 83036; 84439; 84443; 85025

== ENCOUNTER → 2025-04-01 | Outpatient (CLI) | payer BC | END | disposition home or self-care (01) | LOC: RAD 07:59 | PROVIDERS: ATTEND Thoracic Surgery (Cardiothoracic Vascular Surgery) | DX: I10 Essential (primary) hypertension (principal) | CPT/HCPCS: 71046 ==

== ENCOUNTER → 2025-05-17 | Outpatient (CLI) | payer BC ==
[2025-05-17 08:22] LABS: BASOPHILS % 1.0 % (0.0-2.0); EOSINOPHILS % 2.2 % (0.0-5.0); HEMATOCRIT. 49.1 % (42.0-52.0); HEMOGLOBIN. 16.0 g/dL (14.0-18.0); LYMPHOCYTES % 29.5 % (20.0-50.0); MEAN PLATELET VOLUME 7.9 fl (7.4-10.4); MONOCYTES % 6.9 % (2.0-8.0); NEUTROPHILS % 60.4 % (40.0-76.0); PLATELET 165 x1000/uL (130-400); RED BLOOD CELL COUNT 5.91 mill/uL (4.7-6.1); RED CELL DISTRIBUTION WIDTH 14.6 % (11.6-14.6)
[2025-05-17 08:42] LABS: CREATININE 1.2 mg/dL (0.6-1.3); GLUCOSE FASTING 167 mg/dL (70-105); TRIGLYCERIDE 351 mg/dL (0-150); UREA NITROGEN BLOOD 17 mg/dL (9-23)
[2025-05-17 08:43] LABS: ASPARTATE AMINOTRANSFERASE 18 IU/L (<34); LDL CHOLESTEROL 77 mg/dL (5-100)
[2025-05-17 08:44] LABS: BILIRUBIN TOTAL 0.6 mg/dL (0.1-1.0); PROTEIN TOTAL 7.0 g/dL (6.0-8.3); T4 FREE 1.61 ng/dL (0.89-1.76)
[2025-05-18 08:08] LABS: PROSTATE SPECIFIC AG TOTAL 0.6 ng/mL (0.0-4.0); VITAMIN D 25-OH 28.9 ng/mL (30.0-100.0)
== END | disposition home or self-care (01) ==
LOC: LAB 07:45
PROVIDERS: ATTEND Internal Medicine Nephrology
DX: I10 Essential (primary) hypertension (principal); E11.65 Type 2 diabetes mellitus with hyperglycemia; E78.5 Hyperlipidemia, unspecified; E55.9 Vitamin D deficiency, unspecified; Z71.2 Person consulting for explanation of examination or test findings; Z79.899 Other long term (current) drug therapy
CPT/HCPCS: 36415; 80053; 80061; 82306; 82947; 83036; 84153; 84439; 84443; 85025

== ENCOUNTER → 2025-05-21 | Outpatient (CLI) | payer BC | END | disposition home or self-care (01) | LOC: MRI 08:27 | PROVIDERS: ATTEND Neurological Surgery | DX: M47.812 Spondylosis without myelopathy or radiculopathy, cervical region (principal); M50.21 Other cervical disc displacement, high cervical region; M50.221 Other cervical disc displacement at C4-C5 level; M50.222 Other cervical disc displacement at C5-C6 level; M48.02 Spinal stenosis, cervical region | CPT/HCPCS: 72141 ==